=== PATIENT | male | born 1935 | race Caucasian/White ===

== ENCOUNTER → 2024-01-31 12:18 | Outpatient (CLI) | payer MEDICARE, BC, SELFPAY ==
--- NOTE | 2024-01-31 12:20 | DI.CT.S_ITS ---
PROCEDURE: CT CHEST HIGH RESOLUTION INDICATIONS: HYPOXIC RESP FAILURE TECHNIQUE: Noncontrast 1.0 and 5.0 mm thick contiguous axial sections from the pulmonary apex to the posterior costophrenic angles, with 7 mm thick coronal and sagittal MIP reformats. 1 mm thick dynamic expiratory images acquired through the upper, mid, and lower lungs. 1.0 mm thick axial sections acquired from the jonah to the posterior costophrenic angles in the prone end-inspiration position. For radiation dose reduction, the following was used: automated exposure control, adjustment of mA and/or kV according to patient size. COMPARISON: [facility], CR, XR CHEST 2 VIEWS, 12/24/2023, 11:02. FINDINGS: Image quality: Diagnostic Lungs and pleura: Moderate to severe emphysematous changes. There is also reticulation most confluent at the costophrenic angles, with traction bronchiectasis, and mild bronchial wall thickening. No definite honeycombing. There are [id number] scattered areas of air trapping. Numerous tiny nodules are seen mostly at the periphery of the lungs, many of which are calcified. No pleural effusions. On prone imaging, areas of atelectasis are decreased, but the above findings mostly persist. Mediastinum, heart, and esophagus: Coronary calcifications. Cardiac electrode leads. Heart size is within normal limits. Trace pericardial fluid versus thickening. No pathologic lymph nodes by size criteria. Chest wall and thyroid: Unremarkable Upper abdomen: Unremarkable, partially visualized Bones: Degenerative changes IMPRESSION: Mixed parenchymal lung disease, with moderate to severe emphysema and areas of air trapping with bronchial wall thickening, likely superimposed bronchitis and bronchiolitis. 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 Traction bronchiectasis is present. 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 Consider follow-up imaging for surveillance depending on clinical context. Other findings above. Dictated by: Palomo Lane M.D. on 02/01/2024 at 9:39 Approved by: Palomo Lane M.D. on 02/01/2024 at 9:46
== END ==
LOC: CT 12:19
PROVIDERS: PCP Internal Medicine; Referring Provider Student in an Organized Health Care Education/Training Program; Visit Provider Student in an Organized Health Care Education/Training Program
DX: J96.11 Chronic respiratory failure with hypoxia (principal); J43.9 Emphysema, unspecified; J47.9 Bronchiectasis, uncomplicated; I25.10 Atherosclerotic heart disease of native coronary artery without angina pectoris
CPT/HCPCS: 71250